=== PATIENT | female | born 1955 | race Caucasian/White ===

== ENCOUNTER 2020-05-14 12:26 | Outpatient (CLI) | payer MEDICARE, SELFPAY ==
--- NOTE | ~2020-05-14 | US_ITS ---
EXAMINATION: US thyroid EXAM DATE: 05/14/2020 13:33 INDICATION: Thyroid nodule. TECHNIQUE: Multiple grayscale and Doppler images of the thyroid were obtained (by a technologist who performed the scan) and subsequently reviewed. Individual nodules and recommendations may be reporte d in accordance with TI-RADS system as designated by the 2017 ACR White Paper TI-RADS committee. The re is no prior study for comparison. FINDINGS: The right there are lobe measures 4.3 x 1.3 x 1.1 cm, the left measuring 3.5 x 1.1 x 1.0 cm. Mildly h eterogeneous thyroid echogenicity with a focal right thyroid lobe nodule measuring 1.5 x 0.9 x 0.9 ce ntimeters, solid (2 points), isoechoic (1 point), wider than tall, smooth margin, without echogenic f oci, category TR3 for this nodule. IMPRESSION: Mildly heterogeneous thyroid echogenicity with right thyroid lobe nodule; consider 1 year follow-up ultrasound. Reviewed, dictated and finalized at location A. IMPRESSION: Mildly heterogeneous thyroid echogenicity with right thyroid lobe n odule; consider 1 year follow-up ultrasound.
== END 2020-05-14 12:27 | disposition home or self-care (01) ==
LOC: CHSIMG 12:31
PROVIDERS: PCP Internal Medicine; Visit Provider Internal Medicine
DX: E04.1 Nontoxic single thyroid nodule (principal); I25.10 Atherosclerotic heart disease of native coronary artery without angina pectoris; E78.5 Hyperlipidemia, unspecified
CPT/HCPCS: 76536

== ENCOUNTER 2020-08-04 11:35 | Outpatient (CLI) | payer MEDICARE, SELFPAY ==
--- NOTE | ~2020-08-04 | XR_ITS ---
XR pelvis 1-2V DATE: 08/04/2020 12:02 INDICATION: Pelvic pain for 3 months TECHNIQUE: AP pelvis COMPARISON: None FINDINGS: Transitional lumbosacral vertebra sacralization on the left, lumbarization on the right. Th is may be a source of chronic low back pain. There is degenerative change at the pubic symphysis. The sacroiliac joints are intact. Hip joint spaces are symmetric and relatively preserved. No pelvic fracture or bone destruction. No fracture or dislocation, avascular necrosis or bone destru ction of either hip is evident. IMPRESSION: Transitional lumbosacral vertebra Degenerative change at the pubic symphysis Reviewed, dictated and finalized at location B. ICE AND REPAIR SUPERVISOR
--- NOTE | ~2020-08-04 | XR_ITS ---
XR lumbar spine 2-3V DATE: 08/04/2020 12:02 INDICATION: Low back pain for 3 months, gluteal pain TECHNIQUE: AP, lateral, coned lateral lumbosacral views COMPARISON: 07/13/2017 lumbar spine FINDINGS: Again noted is a transitional lumbosacral vertebra with sacralization on the left, lumbariz ation on the right. Diffuse osteopenia. Normal alignment of the lumbar spine. No fracture or bone destruction or spondylolisthesis. The lumba r pedicles are intact. There is mild degenerative disc disease at L2-3 and L3-4, moderate loss of interspace height at L4-5. Degenerative changes at the apophyseal joints. Sacroiliac joints appear normal. IMPRESSION: Transitional lumbosacral vertebra Mild degenerative changes Diffuse osteopenia No significant change since 07/13/2017 Reviewed, dictated and finalized at location B. NE STEAM FITTER
== END 2020-08-04 11:36 | disposition home or self-care (01) ==
PROVIDERS: PCP Internal Medicine; Visit Provider Internal Medicine
DX: M54.5 Low back pain (principal)
CPT/HCPCS: 72100; 72170

== ENCOUNTER 2021-04-26 13:30 | Outpatient (CLI) | payer MEDICARE, SELFPAY ==
--- NOTE | ~2021-04-26 | US_ITS ---
EXAMINATION: US thyroid DATE: 04/26/2021 13:52 INDICATION: Thyroid nodule. TECHNIQUE: Multiple ultrasound images of the thyroid were obtained. COMPARISON: Ultrasound 05/14/2020 FINDINGS: The right thyroid lobe measures 4.3 x 0.9 x 1.3 cm. The left thyroid lobe measures 3.0 x 0.8 x 1.4 c m. In the right thyroid lobe, there is a 12 mm solid, hypoechoic, [id number]-[id number] nodule with smooth margin without echogenic foci (TI-RADS TR4), stable from 05/14/2020. In the right thyroid lobe, there is a 7 mm solid, hypoechoic, rednu-vkzx-ksil nodule with smooth margin without echogenic foci (TR4). IMPRESSION: 1. Thyroid nodules. Thyroid ultrasound is recommended in one year. Reviewed, dictated and finalized at location A.
== END 2021-04-26 13:31 | disposition home or self-care (01) ==
PROVIDERS: PCP Internal Medicine; Visit Provider Internal Medicine
DX: E04.1 Nontoxic single thyroid nodule (principal)
CPT/HCPCS: 76536

== ENCOUNTER 2021-06-29 11:02 | Outpatient (CLI) | payer MEDICARE, SELFPAY | END 2021-06-29 11:03 | disposition home or self-care (01) | LOC: CHSIMG 11:04 | PROVIDERS: PCP Internal Medicine; Visit Provider Internal Medicine Endocrinology, Diabetes & Metabolism | DX: E04.1 Nontoxic single thyroid nodule (principal); Z53.8 Procedure and treatment not carried out for other reasons | CPT/HCPCS: 99199 ==

== ENCOUNTER 2022-04-25 13:19 | Outpatient (CLI) | payer MEDICARE, SELFPAY ==
--- NOTE | ~2022-04-25 | US_ITS ---
EXAMINATION: US thyroid DATE: 04/25/2022 13:58 INDICATION: Thyroid nodules. TECHNIQUE: Multiple ultrasound images of the thyroid were obtained. COMPARISON: Ultrasound 04/26/2021, 05/14/2020 FINDINGS: The right thyroid lobe measures 4.9 x 1.4 x 1.0 cm. The left thyroid lobe measures 4.3 x 1.2 x 1.0 c m. The thyroid demonstrates heterogeneous echogenicity. In the right thyroid lobe, there is a 16 mm solid, hypoechoic, wider than tall nodule with smooth margin without echogenic foci (TI-RADS TR4). IMPRESSION: 1. Right thyroid nodule with increase in size. Ultrasound-guided fine-needle aspiration is recommende d. Reviewed, dictated and finalized at location A. IMPRESSION: 1. Right thyroid nodule with increase in size. Ultrasound-guided fine-needle as piration is recommended.
== END 2022-04-25 13:20 | disposition home or self-care (01) ==
LOC: CHSIMG 13:20
PROVIDERS: PCP Internal Medicine; Visit Provider Internal Medicine Endocrinology, Diabetes & Metabolism
DX: E04.1 Nontoxic single thyroid nodule (principal)
CPT/HCPCS: 76536

== ENCOUNTER 2023-05-03 09:49 | Outpatient (CLI) | payer MEDICARE, SELFPAY ==
--- NOTE | ~2023-05-03 | US_ITS ---
EXAMINATION: US thyroid DATE: 05/03/2023 10:21 INDICATION: Multiple thyroid nodules. TECHNIQUE: Multiple ultrasound images of the thyroid were obtained. COMPARISON: Ultrasound 04/25/2022 FINDINGS: The right thyroid lobe measures 4.9 x 1.6 x 1.3 cm. The left thyroid lobe measures 3.5 x 1.0 x 1.3 c m. The thyroid demonstrates heterogeneous echogenicity. Vascularity is increased. In the right thyroi d lobe, there is a 13 mm solid, isoechoic, wider than tall nodule with smooth margin without echogeni c foci (TI-RADS TR3). In the right thyroid lobe, there is a 7 mm solid, isoechoic more than tall nodu le with smooth margin without echogenic foci (TR3). IMPRESSION: 1. Small thyroid nodules, likely not clinically significant. No follow-up is needed. 2. Heterogeneous, hypervascular thyroid, consistent with chronic lymphocytic (Hazel) thyroiditis. Reviewed, dictated and finalized at location A. IMPRESSION: 1. Small thyroid nodules, likely not clinically significant. No follow-up is ne eded. 2. Heterogeneous, hypervascular thyroid, consistent with chronic lymphocytic (H ashimoto) thyroiditis.
== END 2023-05-03 09:50 | disposition home or self-care (01) ==
LOC: CHSIMG 09:51
PROVIDERS: PCP Internal Medicine; Visit Provider Internal Medicine Endocrinology, Diabetes & Metabolism
DX: E04.2 Nontoxic multinodular goiter (principal)
CPT/HCPCS: 76536

== ENCOUNTER 2025-01-07 10:52 | Outpatient (CLI) | payer MEDICARE, SELFPAY ==
--- NOTE | ~2025-01-07 | US_ITS ---
EXAMINATION: US thyroid DATE: 01/07/2025 11:14 INDICATION: Follow-up thyroid nodules TECHNIQUE: Multiple ultrasound images of the thyroid were obtained. COMPARISON: 05/03/2023 and dating back to 04/26/2021. FINDINGS: The right thyroid lobe measures 4.6 x 1.5 x 1.3 cm. Within the lower pole of the right lobe of the thyroid gland is a 9 x 10 x 9 mm nodule: Composition -mixed cystic and solid (1) Echogenicity -hyperechoic or isoechoic (1) Shape - wider than tall Margin - smooth Echogenic foci - none. = TR2 not suspicious. The left thyroid lobe measures 3.1 x 1.0 x 1.1 cm. Within the left lobe of the thyroid gland is a 6 x 5 x 4 mm nodule: Composition -spongiform Echogenicity -hyperechoic or isoechoic (1) Shape - wider than tall Margin - smooth Echogenic foci - none. = TR 1, benign The isthmus measures 0.24cm in anterior to posterior dimension. There is otherwise normal homogeneous echotexture and echogenicity throughout the remainder thyroid g land. No additional discrete nodules identified. Normal vascular flow is present. IMPRESSION: TR1 and TR2 nodules within the thyroid gland. These nodules are not sonographically suspicious and no FNA is recommended. While no follow-up is recommended, it may be performed. Reviewed, dictated and finalized at location A.
--- OUTSIDE RECORDS SUMMARY | 2025-01-07 12:43 | XMS_ITS | Clinical Summary ---
Author Organization [facility] Address [address] [place] [address] Care Team Providers Care Orchid Hand Name Role Phone Kenneth Hilton MD Primary Care Provider [phone] Mercy Gongora MD Unavailable Allergies No known active allergies Medications aspirin EC 81 MG tablet Take 2 tablets (162 mg total) by mouth daily. 1 Active Calcium Carbonate-Vit D-Min (CALCIUM 600+D3 PLUS MINERALS) 600-800 MG-UNIT Chew Tab Chew 2 tablets by mouth daily. 4 Active pravastatin 80 MG tablet pravastatin Tablet 80 mg; take 1 tablet by mouth at bedtime; 30; 6; -May-2011; Active; refill by PCP 1 Active magnesium oxide 400 MG tablet Take 1 tablet (400 mg total) by mouth daily. Active vitamin C 1000 MG tablet Take 1 tablet (1,000 mg total) by mouth daily. Active vitamin E 400 UNIT capsule Take 1 capsule (400 Units total) by mouth daily. Active latanoprost 0.005 % ophthalmic solution INSTILL 1 DROP INTO BOTH EYES AT BEDTIME 1 Active DULoxetine 20 MG capsule 2 Active metoprolol succinate ER (TOPROL-XL) 50 MG 24 hr tablet Take 1 tablet (50 mg total) by mouth every morning. 90 tablet 2 5 Active Active Problems Problem Noted Date Diagnosed Date Coronary artery disease 08/22/2018 PVCs (premature ventricular contractions) 2016 Coronary artery disease invo lving [place] coronary artery of [place] heart without angina pectoris 04/29/2016 S/P coronary artery stent placement 04/29/2016 Essential hypertension 04/29/2016 Mixed hyperlipidemia 04/29/2016 Encounters Date Type Department Care Team Description 11/03/2024 Telephone [facility] [address] [place] [address] Mercy Gongora MD Medication Request from Last 3 Months Family History Medical History Relation Comments CABG Father Coronary artery disease Father CVA Mother Relation Status Comments Father Mother Social History Tobacco Use Types Packs/Day Years Used Date Smoking Tobacco: Never Smokeless Tobacco: Never Alcohol Use Standard Drinks/Week Comments No 0 (1 standard drink = 0.6 oz pur e alcohol) Comments Unknown Sex and Gender Information Value Date Recorded Sex Assigned at Not on file Legal Sex Female 2:44 AM CDT Gender Identity Not on file Sexual Orientation Not on file 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 file Not on file Not on file Last Filed Vital Signs Vital Sign Reading Time Taken Comments Blood Pressure 110/44 04/04/2024 1:13 PM CDT Pulse 59 04/04/2024 1:13 PM CDT Temperature - - Respiratory Rate 16 04/04/2024 1:13 PM CDT Oxygen Saturation 99% 04/04/2024 1:13 PM CDT Inhaled Oxygen Concentration - - Weight 66.2 kg (146 lb) 04/04/2024 1:13 PM CDT Height 171.5 cm (5' 7.5 ) 04/04/2024 1:13 PM CDT Body Mass Index 22.53 04/04/2024 1:13 PM CDT Plan of Treatment Upcoming Encounters Date Type Department Care Team (Late st Contact Info) Description 04/13/2025 9:15 AM CDT Office Visit [facility] [place] [address] Mercy Gongora MD [address] [place] [address] Health Maintenance Due Date Last Done Comments ASCVD Statin 1954 Colorectal Cancer Screening Colonoscopy (10 Years) 1954 Hepatitis C 1972 DTaP, Tdap and Td Vaccines ( 1 - Tdap) 1973 Pneumococcal Vaccine: 50+ Years (1 of 2 - PCV) 1973 Mammogram Screening 1994 ASCVD LDL 06/18/2013 06/18/2012 RSV Immunization or 60+ Years (1 - Risk 60-74 years 1-dose series) 2014 Zoster Vaccines (2 of 3) 11/09/2014 09/14/2014 Annual Medicare Wellness Visit 2019 Dexa Scan (General) 2019 COVID-19 Vaccine (3 - 2023-2 5 season) 2024 12/01/2020, 11/10/2020 Meningococcal B Vaccine Aged Out No l onger eligible based on patient's age to complete this topic Meningococcal Vaccine Aged Out No jose jak eligible based on patient's age to complete this topic RSV Immunizations Under 20 Months Aged Out No longer eligible b ased on patient's age to complete this topic Procedures Procedure Name Priority Date/Time Associated Diagnosis Comments LIPID PANEL Routine 06/18/2012 12:00 AM CDT from Last 3 Months or Most Recently Relevant to Health Maintenance Results * LIPID PANEL (06/18/2012 12:00 AM CDT) TRIGLYCERIDES 88 0 - 150 mg/dl MEDINFORMATIX TO EPIC CONVERSION CHOLESTEROL 153 0 - 200 mg/dl MEDINFORMATIX TO EPIC CONVERSION HDL 57 40 - 59 mg/dl MEDINFORMATIX TO EPIC CONVERSION LDL CONVERSION 78 0 - 100 mg/dl MEDINFORMATIX TO EPIC CONVERSION CHOL/HDL RATIO 2.7 <4.0 (Calc) MEDINFORMATIX TO EPIC CONVERSION 06/18/2012 06/18/2012 Narrative MEDINFORMATIX TO EPIC CONVERSION - 06/25/2012 2:37 PM CDT Reviewed by AMOS Jun 25 2012 2:38:00:000PM us Generic Conversion [facility] Final R esult MEDINFORMATIX TO EPIC CONVERSION from Last 3 Months or Most Recently Relevant to Health Maintenance Insurance [employer] Advance Directives Documents on File Type Date Recorded Patient Metal Rolling Mill Operator Expl anation Advance Directives and Livin g Will 01/01/2014 ADVANCE DIRECTIVE Care Teams Orchid Hand Relationship Specialty Start Date End Date Kenneth Hilton MD [address] [place] [phone] PCP - General INTERNAL MEDICINE 04/13/16 Mercy Gongora MD [address] [place] [address] Consulting Physician CARDIOVASCULAR DISEASE 01/11/24
--- OUTSIDE RECORDS SUMMARY | 2025-01-07 12:43 | XMS_ITS | Encounter Summary ---
Author Organization [facility] Address [facility] [place] [address] Care Team Providers Care Roller Inspector Name Role Phone Kenneth Hilton MD Primary Care Provider [phone] Vamshi Paredes MD Unavailable [phone] Mercy Gongora MD Unavailable Encounter Details Date Type Department Care Team (Late Contact Info) Description 04/11/2016 Abstract [facility] [address] [place] [phone] Abstract, Doc [facility] Social History Tobacco Use Types Packs/Day Years Used Date Smoking Tobacco: Never Alcohol Use Standard Drinks/Week Comments [...] file Not on file Not on file documented as of this encounter Plan of Treatment Upcoming Encounters Date Type Department Care Team (Late Contact Info) Description 04/13/2025 9:15 AM CDT Office Visit [facility] [place] [phone] Mercy Gongora MD [address] [place] [address] documented as of this encounter Visit Diagnoses Not on filedocumented in this encounter Care Teams Roller Inspector Relationship Specialty Start Date End Date Kenneth Hilton MD [address] [place] [address] PCP - General INTERNAL MEDICINE 04/13/16 Vamshi Paredes MD [address] [place] [address] [place] Sole Polisher CARDIOVASCULAR DISEASE 04/13/16 01/10/24 Mercy Gongora MD [address] [place] [address] Consulting Physician CARDIOVASCULAR DISEASE 01/11/24 documented as of this encounter
--- OUTSIDE RECORDS SUMMARY | 2025-01-07 12:43 | XMS_ITS | Encounter Summary ---
Author Organization [facility] Address [address] [place] [address] Care Team Providers Care Laundry Equipment Operator Name Role Phone Kenneth Hilton MD Primary Care Provider [phone] Vamshi Paredes MD Unavailable [phone] Mercy Gongora MD Unavailable Encounter Details Date Type Department Care Team (Late Contact Info) Description 02/18/2015 Abstract [facility] [address] [place] [address] Vamshi Paredes MD [address] [place] [address] Social History Tobacco Use Types Packs/Day Years Used Date Smoking Tobacco: Unknown Alcohol Use Standard Drinks/Week Comments No 0 [...] Description 04/13/2025 9:15 AM CDT Office Visit [facility] [place] [address] Mercy Gongora MD [address] [place], [place] [id number] documented as of this encounter Visit Diagnoses Not on filedocumented in this encounter Care Teams Laundry Equipment Operator Relationship Specialty Start Date End Date Kenneth Hilton MD [address] [place] [phone] PCP - General INTERNAL MEDICINE 04/13/16 Vamshi Paredes MD [address] [place] [address] [place] [facility] Pharmacist CARDIOVASCULAR DISEASE 04/13/16 01/10/24 Mercy Gongora MD [address] [place] [address] Consulting Physician CARDIOVASCULAR DISEASE 01/11/24 documented as of this encounter
--- OUTSIDE RECORDS SUMMARY | 2025-01-07 12:43 | XMS_ITS | Data Portability ---
Author Organization [facility], [address] [facility] ([place]) Address [address] 4th [place] [address] Care Team Providers Care Development System Efficiency Manager Name Role Phone DALILA ABEBE Primary Care Provider Assessment Encounter Date Assessment Date Assessment LastModified by Organization Details LastModified Time 02/07/2024 02/07/2024 REASON FOR FOLLOW-UP: Multiple thyroid nodules. HISTORY OF PRESENT ILLNESS: Ms. Florecita Schmidt is a delightful 65-year-old female presenting to endocrine clinic with her . She was discovered by her primary care physician, Dr. Hilton, to have thyroid enlargement on physical examination in April 2020. This led to thyroid ultrasound at [facility] May 14, 2020. That study revealed the right thyroid lobe to measure 4.3 x 1.3 x 1.1 cm with the left lobe measuring 3.5 x 1.1 x 1.0 cm. Mildly heterogeneous echogenicity was noted with a focal right thyroid lobe nodule measuring 1.5 x 0.9 x 0.9 cm. TI-RADS categorization for the nodule was 3. No other thyroid nodules were described in that report. The patient was then seen at [facility] Endocrinology in consultation. She had FNA biopsy of her right thyroid nodule performed June 09, 2020. The specimen was nondiagnostic due to limited cellularity. Thyroid ultrasound was repeated at [facility] April 25, 2022. This study mentioned increase in size of a right thyroid lobe nodule to 16 mm. This was hypoechoic with TI-RADS score of 4. Ms. Schmidt had FNA biopsy June 20, 2022. Pathology revealed atypia of undetermined significance of her right thyroid nodule. [employer] Physiological Chemist was benign with estimated risk of malignancy within that nodule of 4% per the dictated pathology report. Ultrasound was performed at [place] on May 03, 2023. This mentioned small, stable thyroid nodules per the dictated report. In right thyroid lobe, there was a 1.3 mm solid nodule which was TI-RADS 3. In the right thyroid lobe was a 7 mm nodule which was TI-RADS 3. Ms. Schmidt denies any pressure symptoms over the anterior neck. She denies change in voice. Ms. Schmidt has coronary artery disease. She had myocardial infarction in 2009. She required coronary stenting. She feels well from a cardiac standpoint. She has good activity tolerance. She has impaired fasting glucose. This has been stable. Denies any symptoms of hyperglycemia. She manages her impaired fasting glucose with Dr. Hilton. PHYSICAL EXAMINATION: CONST: No acute distress. Appears well. Vitals as documented. Appears younger than stated age. EYES: PERRL. EOMI. No scleral icterus or injection. No exophthalmos or lid lag. ENT: External inspection of the ears and nose are without scars, lesions, or masses. Oropharynx is pink, moist, and without lesions. NECK: Palpable midline cyst approximately 1 cm in size over the tracheal cartilage. No distinct thyroid nodules palpable. No thyroid bruits. No carotid bruits. No supraclavicular or cervical lymphadenopathy. RESP: Lung laura clear to auscultation bilaterally with unlabored respiratory effort. CV: Normal S1, S2. No murmurs, rubs, or gallops appreciated. Regular rate and rhythm. GI: Abdomen: soft, nontender. Normoactive bowel sounds. No organomegaly. MSK: No lower extremity edema. No clubbing or cyanosis. Normocephalic. SKIN: No rashes or lesions. PSYCH: Alert and oriented X 3. Appropriate mood and affect. NEURO: No focal neurologic deficits. Gait without abnormalities. No hand tremors. Reviewed recent diagnostic tests, lab work, and imaging. These were reviewed with the patient. ASSESSMENT: 1. Multiple right thyroid nodules, status post fine needle aspiration biopsy of 15 mm nodule June 09, 2020, pathology revealed a nondiagnostic specimen. 2. Biochemically and clinically euthyroid state. 3. Impaired fasting glucose. 4. Dyslipidemia. 5. Coronary artery disease. 6. FNA biopsy of right thyroid nodule, June 20, 2022, revealing atypia of undetermined significance: Estimated malignancy risk was calculated at 4% per the dictated pathology report. RECOMMENDATIONS: 1. Potential benefits, risks, and adverse effects of the patient s endocrine medications were reviewed at the time of the appointment. We also reviewed appropriate timing of the patient s endocrine medications with respect to meals and other medications. The patient verbalized/indicat ed understanding of all education presented. 2. Instructed on plan of care. Discussed signs and symptoms to report. Patient/caregiver aware and agreeable with plan. Return to clinic if signs/symptoms do not improve, worsen, or if new symptoms develop. The importance of achieving/maintain ing a normal BMI was discussed. 3. Diagnostic studies as outlined in this note. Further recommendations will be based on these results as well as the patient s clinical course. 4. Return to endocrinology clinic in 1 year. 5. Treatment options for thyroid nodules were reviewed in detail with the patient. Options discussed included thyroidectomy, thyroid ultrasound, and/or fine needle aspiration biopsy/biopsies of nodules meeting criteria for histologic evaluation. 6. Ms. Schmidt considered each of these options regarding her thyroid nodules. She will have repeat thyroid ultrasound in [place] in January 2025. 7. We again discussed symptoms of thyroid dysfunction. I asked her to report any such symptoms to our office. dk [email or web address] Not available 02/07/2024 18:17:57 06/16/2024 06/16/2024 She is doing wel l. She had no gynecologic concerns. She does need to repeat her bone density, so she will do that this year with her mammogram. We reviewed her family history and she does not have an elevated hereditary cancer risk. [facility] [email or web address] Not available 06/16/2024 14:32:30 Plan of Treatment Reminders Order Date Submit Date Provider Last Modified By Organization Details Last Modified Time Details Appointments None recorded. Lab None recorded. Referral None recorded. Procedures None recorded. Surgeries None recorded. Imaging MAMMO, screening, digital, bilateral 2023 024 [facility] [place] [facility], [address] [place] [address], [id number], 09:31:16 bone density 2023 024 [facility] [place] [facility], [address] [place] [address], [id number], 4 12:46:43 Medication Orders None recorded. Patient TargetsNo targets recorded. Patient InstructionsNo instructions recorded. Reason for Referral None Reported. Results Created Date Observation Date Name Description Value Unit Range Abnormal Flag Note LastModifiedBy Organization Detail LastModifiedTime 08/25/20 24 08/25/2024 bone densi ty [address] [address] Teleph [phone] Name: FLORECITA WOLFF [id number] am Date: 2023 Age: 69Phys ician: MD NIKHIL, MILO WEN : 1954Ex aminat ion: BONE DENSIT Y EXAMIN ATION: BONE DENSIT Y PATIEN T PROVID ED HISTOR Y: Postme nopaus al for screen ing. Parent hip fractu re. COMPAR PAUL: 2019 FINDIN GS: AP lumbar spine T-scor e is -0.4 There has been a 4.1% increa se in BMD. Hip Total Hip T-scor e is -1.7 There has been a 2.1% decrea se in BMD. Femora l neck T-scor e is -1.6 IMPRES OANH: Low bone mass. Fractu re risk assess ment (FRAX) : 10 year risk for a major osteop orotic fractu re is 15% 10 year risk for a hip fractu re is 3.5% The FRAX tool has not been valida marysol in patien ts curren tly or previo usly treate d with pharma cother apy for osteop orosis . In such patien ts, clinic al judgem ent must be exerci sed in interp reting FRAX scores as the fractu re risk may be overes timate d. Please see PACS for full comput er genera marysol report . Additi onal Clinic al Inform ation: Bone minera l densit y: Normal (T-sco re above or = -1.0) Low bone mass (T-sco re betwee n -1.0 and -2.5) Osteop orosis (T-sco re = or below -2.5) Medica l evalua tion for second kan causes of low bone minera l densit y may be approp riate. FRAX is a World Health Organi zation valida marysol fractu re risk assess ment tool that calcul ates a person 's 10 year probab ility of a major osteop orosis relate d fractu re and hip fractu re. Accord ing to the Nation al Osteop orosis Founda tion guidel shelia, postme nopaus al women and men age 50 or older with low bone mass and a 10 year probab ility of a major osteop orosis relate d fractu re = or greate r than 20% or a 10 year probab ility of a hip fractu re = or greate r than 3% should be consid ered for treatm ent. For furthe r inform ation, includ ing treatm ent recomm endati ons, please refer to the 2019 ISCD Offici al Positi ons (http: //www. iscd.o rg) and the [facility]'s Clinic braden's Guide to Preven tion and Treatm ent of Osteop orosis (http: //www. [facility].or g/prof ession als/cl inical -guide lines) Electr onical ly signed in Tadeo cribe by: Shahbaz Mackenzie MD on:08/25/2024 11:43 AM cc: Page PAGE 1 of [facility] 1 JACKIE [facility] Only - [facility] [address] [place] [address], [id number], 08/26/2024 10:23:19 09/04/20 24 08/29/2024 MAMMO , scree kat, tomos ynthe sis, bilat eral [facility] [address] [place] [address] Name: FLORECITA WOLFF Age: 69 : 1954 Exam Date: 2023 ACCESS ION: [id number] CLINIC AL HISTOR Y: Rolo sellers is 69 years old and is seen for screen ing. The patien t has no person al histor y of cancer . The patien t has no family histor y of breast cancer . No BRCA test taken. No PALB2 test taken. FILMS COMPAR ED: The presen t examin ation has been compar ed to prior imagin g studie s perfor med at [facility] on 2019, 2020, 2021 and 2022. AUGUSTINE MAMMOG JOHNATHAN: Views perfor med: Bilate ral CC w/ Augustine; bilate ral MLO w/ Augustine. There are scatte red areas of fibrog landul ar densit y. There are no suspic ious masses , calcif icatio ns or areas of imtiaz ectura l distor tion. IMPRES OANH: There is no mammog raphic eviden ce of malign marvel. A routin e follow -up mammog johnathan in 1 year is recomm ended. The patien t will be entere d into an automa marysol remind er system to schedu le a mammog johnathan in 1 year. The patien t has been or will be contac marysol with the result s of this exam. ACR BI-RAD S Catego ry 1 - Negati ve To report a qualit y concer n regard ing this report , please call the Medica l Imagin g Qualit y Assura nce [place] e at [phone] press zero to reach the Radiol ogist. Electr onical ly signed by: REYES JACKMAN MD Final Report Dictat ed: 12:20 Reyes Cowan MD Signed : 12:20 Reyes Cowan MD [email or web address] [place] Only - [facility] [address] [place] [address], [id number], 09/04/2024 13:58:00 Result Notes None recorded. Problems Name Problem SNOMED Code Status Onset Date Resolution Date Notes Provider Name and Address Organization Details Recorded Time Osteopenia 332632689 Active 024 Chey Sid [facility], [facility] 4 10:15:15 Thyroid nodule 966274330 Active 024 Altagracia Moore [facility] 5 16:27:42 Impaired fasting glycemia 591369784 Active 024 Martin Vaz M.D. [address] [place] [address], [phone] [place] [address] 4 13:13:44 Problem Notes None recorded. Procedures Surgical History Date Name Laterality Status Provider Name and Address Organization Details Recorded Time Prq card stent w/angio 1 vsl completed Not Available Health Note 06/12/2024 09:44:17 Colonoscopy with biopsy completed Not Available Health Note 06/12/2024 09:44:17 Partial hysterectomy completed Not Available Health Note 06/12/2024 09:44:17 Removal of tonsils completed Not Available Health Note 06/12/2024 09:44:17 Imaging Results Imaging Date Name Status LastModified by Organiz ation Details LastModified Time 08/25/2024 bone density completed [facility] [place] [facility] [address] [place] [address], [id number], 08/26/2024 10:23:19 08/29/2024 MAMMO, screening, tomosynthesis, bilateral completed [id number] [place] Only - [facility] [address] [place] [address], [id number], 09/04/2024 13:58:00 Procedure Notes None recorded. Medical Equipment None Reported. Medications Name Sig Start Date Stop Date Status Note LastModified by Organization Details LastModified Time metoprolol succinate ER 50 mg tablet,extend ed release 24 hr TAKE 1 TABLET BY MOUTH EVERY DAY IN THE MORNING active Not Available Not Available No t Available travoprost 0.004 % eye drops INSTILL 1 DROP INTO BOTH EYES AT BEDTIME active Not Available Not Available No t Available pravastatin 80 mg tablet TAKE 1 TABLET BY MOUTH EVERY DAY active Not Available Not Available No t Available duloxetine 20 mg capsule,delay ed release TAKE 1 CAPSULE BY MOUTH TWICE A DAY active Not Available Not Available No t Available Vitals Date Recorded Body height Body mass index (BMI) Body weight Heart rate Systolic blood pressure Diastolic blood pressure Provider Name and Address Organization Details Last Updated DateTime 4 170.18 cm 22.5 kg/m2 25771.5 1 g 53 /min 108 mm[Hg] 78 mm[Hg] Reanna Perez [facility] 4 12:27:43 Date Recorded Body height Body mass index (BMI) Body weight Systolic blood pressure Diastolic blood pressure Provider Name and Address Organization Details Last Updated DateTime 06/16/2024 170.18 cm 22.6 kg/m2 23665.3 g 108 mm[Hg] 63 mm[Hg] Chey Lau [facility] 12:40:14 Social History Question Answer Notes LastModified by [employer] Details LastModified Time Tobacco Smoking Status Never Smoker Not Available Health Note 06/12/2024 09:44:17 Do You Have An Advance Directive? Yes [email or web address] Information not available 06/12/2024 What Is Your Level Of Alcohol Consumption? None [email or web address] Information not available 06/12/2024 What Is Your Level Of Caffeine Consumption? Occasional [email or web address] Information not available 06/12/2024 What Is Your Code Status? DNR [email or web address] Information not available 06/12/2024 Are You Currently Employed? 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 1-2 Times Per Week [email or web address] Information not available 06/12/2024 Do You Have A Medical Power Of Blast Furnace Checker? Yes [email or web address] Information not available 06/12/2024 What Was The Date Of Your Most Recent Tobacco Screening? 06/16/2024 [email or web address] Information not available 06/12/2024 What Is Your Relationship Status? [email or web address] Information not available 06/12/2024 Do You Use Any Illicit Or Recreational Drugs? No [email or web address] Information not available 06/12/2024 Sex: Unknown Functional Status Question Answer Note LastModified by [employer] Details LastModified Time What is your exercise level? Occasional [email or web address] Information not available 06/12/2024 Mental Status None recorded. Family History Relationship Description Onset Age of this Age Resolved Age Notes LastModified by Organization Details LastModified Time Father Alzheimer's disease [email or web address] Not available 2023 09:44:16 Father Arthritis [email or web address] Not available 06/12/2024 09:44:16 Father Family history of malignant neoplasm [email or web address] Not available 2023 09:44:16 Father Diabetes mellitus [email or web address] Not available 2023 09:44:16 Father Heart disease [email or web address] Not available 2023 09:44:16 Father Hypertensive disorder [email or web address] Not available 2023 09:44:16 Mother Arthritis [email or web address] Not available 06/12/2024 09:44:16 Mother Hypertensive disorder [email or web address] Not available 2023 09:44:16 Mother Osteoporosis [email or web address] Not availa ble 06/12/2024 09:44:16 Mother Cerebrovascu lar accident [email or web address] Not available 09:44:16 Sister Arthritis [email or web address] Not available 06/12/2024 09:44:16 Sister Diabetes mellitus [email or web address] Not available 2023 09:44:16 Brother Diabetes mellitus [email or web address] Not available 2023 09:44:16 Brother Heart disease [email or web address] Not available 2023 09:44:16 Paternal Grandmother Diabetes mellitus [email or web address] Not available 2023 09:44:16 Maternal Grandmother Heart disease [email or web address] Not available 2023 09:44:16 Medical History Condition Response Anxiety Disorder N Diabetes N Bleeding Disorder N Attention-deficit Hyperactivity Disorder N High Blood Pressure N Arthritis N Hyperlipidemia N Cancer N Thyroid Problems N Stroke N Asthma N Depression N COPD N Seizures N Anemia N Heart Disease Y Fibromyalgia N Osteoporosis N Kidney Disease N Gynecological HistoryNo gynecological history recorded. Obstetrics History GPAL:G 0 P 0 0 0 0 Past Encounters Encounter ID Performer Location Encounter Start Date Encounter Closed Date Diagnosis/Indication Diagnosis SNOMED-CT Code Diagnosis ICD10 Code Diagnosis Note [id number] Martin Vaz M.D. [facility] ([place]) [address] [place] [address] 02/07/2024 11:55:42 02/07/2024 13:50:40 Thyroid nodule 107250513 E04.1 Impaired f asting glycemia 269794831 R73.01 [id number] Suzanne Shanks MD [address] [facility] ([place]) [address] [place] [address] 06/16/2024 11:55:56 06/16/2024 16:08:15 Screening mammography 70407679 Z12.31 Additional diagnosis detail: Screening mammogram, encounter for Menopause present 794365 006 Z78.0 Health Concerns Section Related Observation LastModified by Organization Detai ls LastModified Time None Recorded Concern Status LastModified by Organization Details LastModified Time None Recorded Advance Directives Directive Y: Payers Encounter Date Sequence Insurance Name Policy Number Policy Whitt Covered Member ID Whitt Member ID Guarantor Name 02/07/2024 1 [employer] (MEDICARE REPLACEMENT PPO) [id number] Florecita A Schmidt [id number] Florecita A Schmidt 02/07/2024 1 [place] Florecita A Schmidt [id number] Florecita A Schmidt 06/16/2024 1 [employer] (MEDICARE REPLACEMENT PPO) [id number] Florecita A Schmidt [id number] Florecita A Schmidt 06/16/2024 1 [place] Florecita A Schmidt [id number] Florecita A Roxana Notes Date Note Type Note Provider Name and Address Organization Details Recorded Time 06/16/2024 text/html Patient here for annual gynecology exam. She is a . She has no complaints today. The patient denies pelvic pain, abnormal vaginal discharge, breast problems, urinary symptoms, vasomotor symptoms, mood changes and bowel problems. The patient does self breast exams, has adequate calcium intake and exercises regularly. Contraception: Hysterectomy 2012 The patient is currently sexually active. The patient has had no changes in medical/surgical history since her last office visit. Last Mammogram: 08/31/2023Last colonoscopy: 2016Last Bone Density: 2019.6Last pap: 2011 neg performed by: ASR result: negHistory of Abnormal pap: 2005 ASCHHistory of Gestational Diabetes: NoHistory of Gestational Hypertension: NoHereditary Breast and Ovarian cancer screen: negative 2017Hepatitis C: Keara Shanks MD [address] [place] [address], [phone], [place] [facility] 06/18/2024 14:44:21 OBGyn Episode No OBEpisode recorded.
== END 2025-01-07 10:53 | disposition home or self-care (01) ==
LOC: CHSIMG 10:54
PROVIDERS: PCP Internal Medicine; Visit Provider Internal Medicine Endocrinology, Diabetes & Metabolism
DX: E04.1 Nontoxic single thyroid nodule (principal)
CPT/HCPCS: 76536